=== PATIENT | female | born 1965 | race African-American/Black ===

== ENCOUNTER 2017-03-25 11:45 | Emergency (ER) | payer SELFPAY ==
[~2017-03-25] VITALS: Ht 165.1 cm; Wt 72.6 kg
[2017-03-25 12:00] VITALS: BP 139/76
[2017-03-25] MEDS ORDERED: Haloperidol 5mg/ml Inj ONE (12:06)
[2017-03-25] MEDS ORDERED: Haloperidol 5mg/ml Inj IM ONE ×2 (12:15→13:30)
--- NOTE | 2017-03-25 12:46 | Emergency Room Report ---
History of Present Illness General Chief Complaint: Altered Level of Consciousness Source: Patient (David Katz M.D.) Present Illness HPI 51-year-old female no reported history, brought in by police, they state that she was walking on the road, and wouldn't get out of the way and was blocking cars, when the police arrived she kept walking and not listening to them, as if she could not hear them, then she became extremely agitated and yelling nonsense , not necessarily endorsing SI or HI, however rapid speech and is not making sense When asked patient, she is not cooperative at this time, she is saying "Get away from me I know my rights" Cannot say her name or where she is (David Katz M.D.) Allergies: Coded Allergies: UNABLE TO ASSESS (Unverified , 03/25/17) Patient History Past Medical History: see triage record Past Surgical History: none Pertinent Family History: none Reviewed Nursing Documentation: PMH: Agreed, PSxH: Agreed (David Katz M.D. ) Nursing Documentation-PMH Past Medical History Deferred: Pt Cognitively Impaired (David Katz M.D.) Review of Systems All Other Systems: negative except mentioned in HPI (David Katz M.D.) Physical Exam Vital Signs Date Time Temp Pulse Resp B/P (MAP) Pulse Ox O2 Delivery O2 Flow Rate FiO2 03/25/17 11:45 119 16 139/76 99 Room Air Sp02 EP Interpretation: reviewed, normal General Appearance: alert, non-toxic, mild distress, other - agitated/not cooperative Head: normocephalic, atraumatic Eyes: bilateral eye normal inspection, bilateral eye PERRL, bilateral eye EOMI ENT: normal ENT inspection, normal pharynx, normal voice, moist mucus membranes Neck: normal inspection, full range of motion, supple Respiratory: normal inspection, lungs clear, normal breath sounds, no respiratory distress, no retraction, no wheezing, speaking full sentences, chest symmetrical Cardiovascular #1: normal inspection, regular rate, rhythm, normal capillary refill Cardiovascular #2: 2+ radial (R), 2+ radial (L) Gastrointestinal: normal inspection, non tender, soft, non-distended, no guarding Musculoskeletal: normal inspection, back normal, normal range of motion, non- tender Neurologic: alert, motor strength/tone normal, normal gait, other - not cooperating with full neurological exam, cannot assess orientation as she is not cooperative with questions Psychiatric: other - agitated, cannot assess SI/HI Skin: normal inspection, normal color, no rash, warm/dry, well hydrated, normal turgor (Retino,Clairose M.D.) Medical Decision Making Diagnostic Impression: Primary Impression: Altered level of consciousness Additional Impressions: Behavior disorder Psychosis Qualified Codes: F29 - Unspecified psychosis not due to a substance or known physiological condition Hyperglycemia UTI (urinary tract infection) Qualified Codes: N30.00 - Acute cystitis without hematuria LBBB (left bundle branch block) ER Course 51-year-old female, on a 5150 hold, agitation and altered mental status DDX: Electrolyte disturbance, psych, intoxication At this time patient is walking around the emergency room, healing to grab for things, a second not asking questions, but does not appear to be any neurological deficit at this time, no signs of trauma, will hold Plan: Obtain labs, ua, psych consult ER course: Haldol and Ativan given for acute agitation continues to be agitated/yelling/another 5mg haldol and 2mg ativan given Signed out patient to Dr. Lazo 51-year-old female, agitated, likely psych On 5150 Given total 10 mg Haldol and 4 mg Ativan, still very agitated Walking around the emergency room, yelling random things Pending psych consult, Dr. Allison aware of patient Please note that this Emergency Department Report was dictated using [employer] printed circuit boards technology software, occasionally this can lead to erroneous entry secondary to interpretation by the dictation equipment Patient still not giving her name, still altered, unknown baseline, unable to contact any family members, unable to place her in the psych facility as patient does not have a name or social security number We will admit patient to the inpatient unit Laboratory Tests Test 03/25/17 12:30 White Blood Count 7.2 K/UL (4.8-10.8) Red Blood Count 5.14 M/UL (4.20-5.40) Hemoglobin 16.3 G/DL (12.0-16.0) H Hematocrit 50.3 % (37.0-47.0) H Mean Corpuscular Volume 98 FL (80-99) Mean Corpuscular Hemoglobin 31.6 PG (27.0-31.0) H Mean Corpuscular Hemoglobin Concent 32.3 G/DL (32.0-36.0) Red Cell Distribution Width 11.8 % (11.6-14.8) Platelet Count 300 K/UL (150-450) Mean Platelet Volume 8.9 FL (6.5-10.1) Neutrophils (%) (Auto) 59.2 % (45.0-75.0) Lymphocytes (%) (Auto) 32.2 % (20.0-45.0) Monocytes (%) (Auto) 4.5 % (1.0-10.0) Eosinophils (%) (Auto) 3.2 % (0.0-3.0) H Basophils (%) (Auto) 0.9 % (0.0-2.0) Urine Color Yellow Urine Appearance Slightly cloudy Urine pH 6.5 (4.5-8.0) Urine Specific Palmer 1.015 (1.005-1.035) Urine Protein 2+ (NEGATIVE) H Urine Glucose (UA) Negative (NEGATIVE) Urine Ketones Negative (NEGATIVE) Urine Occult Blood Negative (NEGATIVE) Urine Nitrite Negative (NEGATIVE) Urine Bilirubin Negative (NEGATIVE) Urine Urobilinogen Normal MG/DL (0.0-1.0) Urine Leukocyte Esterase 3+ (NEGATIVE) H Urine RBC 0-2 /HPF (0 - 2) Urine WBC 0-2 /HPF (0 - 2) Urine Squamous Epithelial Cells Few /LPF (NONE/OCC) Urine Bacteria Few /HPF (NONE) Urine HCG, Qualitative Negative Sodium Level 143 MMOL/L (136-145) Potassium Level 3.5 MMOL/L (3.5-5.1) Chloride Level 101 MMOL/L (98-107) Carbon Dioxide Level 28 MMOL/L (21-32) Anion Gap 14 mmol/L (5-15) Blood Urea Nitrogen 9 mg/dL (7-18) Creatinine 1.1 MG/DL (0.55-1.30) Estimate Glomerular Filtration Rate > 60 mL/min (>60) Glucose Level 263 MG/DL (74-106) H Calcium Level 10.2 MG/DL (8.5-10.1) H Total Bilirubin 1.1 MG/DL (0.2-1.0) H Direct Bilirubin < 0.1 MG/DL (0.0-0.3) Aspartate Amino Transferase (AST) 13 U/L (15-37) L Alanine Aminotransferase (ALT) 17 U/L (12-78) Alkaline Phosphatase 127 U/L (46-116) H Total Protein 9.0 G/DL (6.4-8.2) H Albumin 4.2 G/DL (3.4-5.0) Globulin 4.8 g/dL Albumin/Globulin Ratio 0.9 (1.0-2.7) L Salicylates Level 0.5 ug/mL (2.8-20) L Urine Opiates Screen Negative (NEGATIVE) Acetaminophen Level < 2 MCG/ML (10-30) L Urine Barbiturates Screen Negative (NEGATIVE) Phencyclidine (PCP) Screen Negative (NEGATIVE) Urine Amphetamines Screen Negative (NEGATIVE) Urine Benzodiazepines Screen Negative (NEGATIVE) Urine Cocaine Screen Negative (NEGATIVE) Urine Marijuana (THC) Screen Negative (NEGATIVE) Serum Alcohol < 3 mg/dL (David Katz M.D.) ER Course patient signed out to me by Dr Katz Labs were already done - Utox negative No medical issues Patient medically cleared Patient on 5150 Hold Is obvious psychotic. 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 Patient given additional anti-psychotic meds in the ER has LBBB on ECG but troponin 0. No previous ECG. Was tx for UTI and elevated glucose Patient awake oriented at 708pm and disruptive in ED, pulled out IV On consult with Dr Umana, given IM Haldol deconate Plan is for keeping overnight and re-eval in morning Endorsed to Dr Thrasher at 9pm (JACEY LAZO M.D.) ER Course Patient has been stable through the night. She's to refuse to give her name. She was easily redirectable. She was purposefully leaving her room to get the chair to send. She went to the bathroom without difficulty. She ate several sandwiches. Will keep her until she is seen by psychiatrist. (GIL THRASHER M.D.) ER Course Patient was endorsed to me by a previous physician. The patient is noted to be awake alert. She is able to ambulate without assistance. She had previously been given anti psychotic medications and anxiolytics. The patient pending psychiatric evaluation. (Jamie King) EKG Diagnostic Results Rate: normal ST Segments: other - LBBB ASA given to the pt in ED: No (JACEY LAZO M.D.) Rhythm Strip Diag. Results EP Interpretation: yes Rate: 65 Rhythm: NSR, no PVC's, no ectopy (JACEY LAZO M.D.) Last Vital Signs Date Time Temp Pulse Resp B/P (MAP) Pulse Ox O2 Delivery O2 Flow Rate FiO2 03/25/17 12:00 16 139/76 99 Room Air 03/25/17 11:45 119 (David Katz M.D.) Status: improved (JACEY LAZO M.D.) Status: improved (Jamie King) Condition: Stable David Katz M.D. Mar 25, 2017 12:46 JACEY LAZO M.D. Mar 25, 2017 14:24 GIL THRASHER M.D. Mar 26, 2017 05:28 Jamie King Mar 26, 2017 06:48
[2017-03-25 12:54] VITALS: BP 139/76
[2017-03-25 12:55] LABS: ANION GAP 14 mmol/L (5-15); CALCIUM 10.2 MG/DL (8.5-10.1); CARBON DIOXIDE 28 MMOL/L (21-32); CHLORIDE 101 MMOL/L (98-107); CREATININE 1.1 MG/DL (0.55-1.30); GLOMERULAR FILTRATION RATE > 60 mL/min (>60); POTASSIUM 3.5 MMOL/L (3.5-5.1); SODIUM 143 MMOL/L (136-145)
[2017-03-25] MEDS ORDERED: LORazepam Inj 2mg/ml 1ml IM ONE ×2 (13:00→13:30)
[2017-03-25 13:05] LABS: ALANINE AMINOTRANSFERASE 17 U/L (12-78); ALBUMIN/GLOBULIN RATIO 0.9 (1.0-2.7); ALCOHOL < 3 mg/dL; ASPARTATE AMINO TRANSFERASE 13 U/L (15-37)
[2017-03-25 13:06] LABS: ACETAMINOPHEN < 2 MCG/ML (10-30)
[2017-03-25 13:07] LABS: BILIRUBIN,DIRECT < 0.1 MG/DL (0.0-0.3)
[2017-03-25 13:14] LABS: APPEARANCE,URINE SLIGHTLY CLOUDY; KETONES,URINE NEGATIVE (NEGATIVE); LEUKOCYTE ESTERASE ,URINE 3+ (NEGATIVE); NITRITE,URINE NEGATIVE (NEGATIVE); PH,URINE 6.5 (4.5-8.0); PROTEIN,URINE 2+ (NEGATIVE); UROBILINOGEN,URINE NORMAL MG/DL (0.0-1.0)
[2017-03-25 13:15] LABS: BASOPHILS % (AUTO) 0.9 % (0.0-2.0); EOSINOPHILS % (AUTO) 3.2 % (0.0-3.0); LYMPHOCYTES % (AUTO) 32.2 % (20.0-45.0); MEAN CORPUSCULAR HEMOGLOBIN 31.6 PG (27.0-31.0); MEAN CORPUSCULAR HGB CONC 32.3 G/DL (32.0-36.0); MEAN CORPUSCULAR VOLUME 98 FL (80-99); MEAN PLATELET VOLUME 8.9 FL (6.5-10.1); MONOCYTES % (AUTO) 4.5 % (1.0-10.0); NEUTROPHILS % (AUTO) 59.2 % (45.0-75.0); PLATELET COUNT 300 K/UL (150-450); RED BLOOD COUNT 5.14 M/UL (4.20-5.40); RED CELL DISTRIBUTION WIDTH 11.8 % (11.6-14.8); WHITE BLOOD COUNT 7.2 K/UL (4.8-10.8)
[2017-03-25 13:19] LABS: BACTERIA,URINE FEW /HPF; RBC,URINE 0-2 /HPF (0 - 2); SQUAMOUS EPITHELIAL CELL,UR FEW /LPF (NONE/OCC); WBC,URINE 0-2 /HPF (0 - 2)
[2017-03-25] MEDS ORDERED: Haloperidol Decanoate 50mg Inj IM ONE ×3 (14:00→19:15)
[2017-03-25] MEDS ORDERED: cefTRIAXone 1 GM in NS 55 ML IVPB ONE (15:30)
[2017-03-25] MEDS ORDERED: NKM (15:53)
[2017-03-25 17:30] VITALS: BP 153/93
[2017-03-25 19:34] VITALS: BP 111/68
[2017-03-25 23:43] VITALS: BP 135/87
[2017-03-26] VITALS (7 sets, daily range): BP systolic 122–142; BP diastolic 72–94
[2017-03-26] MEDS ORDERED: ZyPREXA Zydis 10mg tab ORAL ONE ×2 (07:00→19:45)
--- NOTE | 2017-03-26 14:22 | Cardiology Report ---
APPROVED REPORT EKG Measurement Heart [id number] Normal sinus rhythm Left axis deviation Left bundle branch block Abnormal ECG
[2017-03-26] MEDS ORDERED: LORazepam Inj 2mg/ml 1ml ONE (17:22)
[2017-03-26] MEDS ORDERED: LORazepam Inj 2mg/ml 1ml IM ONE (17:30)
--- NOTE | 2017-03-26 23:39 | Consultation ---
History of Present Illness General Date patient seen: Mar 25, 2017 Chief Complaint: Altered Level of Consciousness Present Illness HPI the pt is easily agitated and is disorganized exposing self poor insight and is not giving her info due to being delusional. and manic. the pt walks around naked. she was given haldol dec Allergies: Coded Allergies: UNABLE TO ASSESS (Unverified , 03/25/17) Medication History Scheduled No Known Medications* (NKM - No Known Medications*), 0 ., (Reported) Patient History Limited by: medical condition History Provided By: Patient, Medical Record Healthcare decision maker Resuscitation status Advanced Directive on File Past Medical/Surgical History Past Medical/Surgical History: (1) Hyperglycemia (2) LBBB (left bundle branch block) (3) Psychosis (4) UTI (urinary tract infection) (5) Altered level of consciousness (6) Behavior disorder Review of Systems Psychiatric: Reports: prior hx, anxiety, depressed feelings, hallucinations Physical Exam General Appearance: alert, agitated Neurologic: alert, responsive, normal mood/affect Last 24 Hour Vital Signs Date Time Temp Pulse Resp B/P (MAP) Pulse Ox O2 Delivery O2 Flow Rate FiO2 03/26/17 19:00 88 16 99 Room Air 03/26/17 18:45 86 16 97 Room Air 03/26/17 18:30 88 16 100 Room Air 03/26/17 18:15 96 18 100 Room Air 03/26/17 18:00 98 17 100 Room Air 03/26/17 17:45 92 18 98 Room Air 03/26/17 17:30 99 18 98 Room Air 03/25/17 23:43 99 18 135/87 98 Room Air Height (Feet): 5 Height (Inches): 5.00 Weight (Pounds): 160 Assessment/Plan Status: unchanged Assessment/Plan schizoaffective cont to treat and reassess may treat her against her will in er on 5150 August Allison M.D. Mar 26, 2017 23:39
[2017-03-26] MEDS ORDERED: Depakote 500mg tab ORAL ONE (23:45)
[2017-03-27] MEDS ORDERED: KEFLEX500 MG ORAL (11:11)
[2017-03-27 12:00] VITALS: BP 126/80
--- NOTE | 2017-03-27 22:26 | General Progress Note ---
Assessment/Plan Status: stable, progressing Assessment/Plan dc 5150 the pt will be send home with transportation the pt is not at imminent dts/sto/not GD Subjective Date patient seen: Mar 27, 2017 Neurologic/Psychiatric: Reports: emotional problems Allergies: Coded Allergies: UNABLE TO ASSESS (Unverified , 03/25/17) Subjective the pt was given haldol and depakote. she was still paranoid and reluctant to give her ss and name. she gave us her address. not agitated and was able to provide self care plan. the pt has stabilized on meds. the pt is not at imminent dts/dto/ the pt is not GD. the pt has breakfast and finished her food. not disrobing and is calm. Objective Last 24 Hour Vital Signs Date Time Temp Pulse Resp B/P (MAP) Pulse Ox O2 Delivery O2 Flow Rate FiO2 03/27/17 12:00 80 16 126/80 99 Room Air Height (Feet): 5 Height (Inches): 5.00 Weight (Pounds): 160 General Appearance: WD/WN, no apparent distress, alert Neurologic: alert, oriented x 3, responsive August Allison M.D. Mar 27, 2017 22:25
== END 2017-03-27 12:00 | disposition home or self-care (01) ==
LOC: EDBD 11:45 → EMR 12:49 → EDBEDREQSVC 15:25 → EDBEDREQ 15:46 → CANBEDREQ 19:05 → ENRESERV 03-26 22:46 → EDBEDREQ 03-26 22:53 → EMR 03-27 12:00
DX: R41.82 Altered mental status, unspecified (principal); F29 Unspecified psychosis not due to a substance or known physiological condition; R73.9 Hyperglycemia, unspecified; N39.0 Urinary tract infection, site not specified
CPT/HCPCS: 36415; 80053; 80307; 81003; 81025; 82248; 84484; 85025; 87081; 93005; 96361; 96372; 96374; 99285; G0480; J0696; J1630; J1631; 80329